=== PATIENT | male | born 2000 | race Two or more races ===

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

== ENCOUNTER 2019-03-22 18:28 | Emergency (ER) | payer BC ==
[2019-03-22 18:39] VITALS: BP 147/68
[2019-03-22] MEDS ORDERED: Albuterol/Ipratropium NEB.SOL* Albuterol 2.5 MG/Ipratropium 0.5 MG 3 ML INH ONE (18:58)
--- NOTE | 2019-03-22 18:58 | UC ---
Respiratory Complaint HPI - HPI Summary HPI Summary: sore throat nasal congestion and cough for a few days-no fever - History of Current Complaint Chief Complaint: UCRespiratory Stated Complaint: SORE THROAT, AND COUGH Time Seen by Provider: 03/22/19 18:34 Hx Obtained From: Patient Onset/Duration: Sudden Onset Timing: Constant Pain Intensity: 6 Pain Scale Used: 0-10 Numeric Character: Cough: Nonproductive Aggravating Factors: Nothing Alleviating Factors: Nothing Associated Signs And Symptoms: Positive: Nasal Congestion, Sinus Discomfort - Allergies/Home Medications Allergies/Adverse Reactions: Allergies Allergy/AdvReac Type Severity Reaction Status Date / Time No Known Allergies Allergy Verified 03/22/19 18:38 Home Medications: Home Medications Ibuprofen TAB* [Motrin TAB* 600 MG] 800 mg PO Q8H PRN 03/22/19 [History] PMH/Surg Hx/FS Hx/Imm Hx Previously Healthy: No Respiratory History: Asthma - mild intermittent - Surgical History Surgical History: None - Family History Known Family History: Positive: None, Non-Contributory - Social History Occupation: Student Lives: With Family Alcohol Use: Rare Substance Use Type: None Smoking Status (MU): Never Smoked Tobacco Have You Smoked in the Last Year: No - Immunization History Most Recent Influenza Vaccination: 2014 Review of Systems All Other Systems Reviewed And Are Negative: Yes Constitutional: Positive: Negative Skin: Positive: Negative Eyes: Positive: Negative ENT: Positive: Sore Throat, Nasal Discharge, Sinus Congestion Respiratory: Positive: Cough Cardiovascular: Positive: Negative Gastrointestinal: Positive: Negative Genitourinary: Positive: Negative Motor: Positive: Negative Neurovascular: Positive: Negative Musculoskeletal: Positive: Negative Neurological: Positive: Negative Psychological: Positive: Negative Is Patient Immunocompromised?: No Physical Exam Triage Information Reviewed: Yes Appearance: Well-Appearing, No Pain Distress, Well-Nourished Vital Signs: Initial Vital Signs Temp 99.0 F 03/22/19 18:33 Pulse 95 03/22/19 18:33 Resp 16 03/22/19 18:33 BP 147/68 03/22/19 18:33 Pulse Ox 95 03/22/19 18:33 Vital Signs Reviewed: Yes Eye Exam: Normal Eyes: Positive: Conjunctiva Clear ENT Exam: Normal ENT: Positive: Normal ENT inspection, Hearing grossly normal, Pharynx normal, Nasal congestion, Uvula midline. Negative: Trismus, Muffled voice, Hoarse voice , Dental tenderness, Sinus tenderness Dental Exam: Normal Neck exam: Normal Neck: Positive: Supple, Nontender, No Lymphadenopathy Respiratory Exam: Normal Respiratory: Positive: Chest non-tender, Lungs clear, Normal breath sounds, No respiratory distress, No accessory muscle use Cardiovascular Exam: Normal Cardiovascular: Positive: RRR, No Murmur, Pulses Normal, Brisk Capillary Refill Musculoskeletal Exam: Normal Musculoskeletal: Positive: Strength Intact, ROM Intact, No Edema Neurological Exam: Normal Neurological: Positive: Alert, Muscle Tone Normal Psychological Exam: Normal Skin Exam: Normal Re-Evaluation - Re-Evaluation First Eval Change: Improved - increased airmovement---sat 96% Respiratory Course/Dx - Course Course Of Treatment: albuterol/aerochamber claritin and nasal spray follow with pcp prn - Differential Dx/Diagnosis Provider Diagnosis: PND (post-nasal drip), Acute bronchospasm Discharge - Sign-Out/Discharge Documenting (check all that apply): Patient Departure All imaging exams completed and their final reports reviewed: No Studies - Discharge Plan Condition: Stable Disposition: HOME Prescriptions: Albuterol HFA INHALER* [Ventolin HFA Inhaler*] 2 puff INH Q6H PRN #1 mdi PRN Reason: chesttightness and cough Patient Education Materials: Bronchospasm (ED), Postnasal Drip (DC) Referrals: Candelario Kaur MD [Primary Care Provider] - If Needed - Billing Disposition and Condition Condition: STABLE Disposition: Home - Attestation Statements Provider Attestation: Per institutional requirements, I have reviewed the chart, however, I was not consulted specifically or made aware of this patient by the midlevel provider. I did not personally evaluate, interact with , or disposition this patient.
[2019-03-22] MEDS ORDERED: Albuterol HFA INHALER* 8 gm MDI INH ONE (19:21)
== END 2019-03-22 19:30 | disposition home or self-care (01) ==
LOC: UCEAST 18:28
DX: R09.82 Postnasal drip (principal); J98.01 Acute bronchospasm; J45.909 Unspecified asthma, uncomplicated
CPT/HCPCS: 87651; 99212; A9270-GY; G0463

== ENCOUNTER 2019-09-05 15:49 | Emergency (ER) | payer BC ==
--- OUTSIDE RECORDS SUMMARY | 2019-09-05 15:57 | XMS REPORT | Continuity of Care Document ---
:2000 External Reference #:[id number] Author Name Charis Hair NP (transmitted by agent of provider Candelario Kaur) Address [address] [place] [address] Care Team Providers Name Role Phone Candelario Kaur M.D. 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 Onset: Social History Type Date Description Comments Sex Unknown ETOH Use Occasionally consumes twice a month at alcohol parties, 5-6 beers Tobacco Use Start: Unknown Patient has never smoked Recreational Drug Use Sporadically uses twice a month Marijuana Tobacco Use Start: Unknown No Exposure To Secondhand Smoke Smoking Status Reviewed: 08/28/19 No Exposure To Secondhand Smoke Guns in Home No Allergies, Adverse Reactions, Alerts Description No Known Drug Allergies Medications Active Medications SIG Qnty Indications Ordering Provider Date Fluticasone 1 spray in each 9.900ml R09.81 Charis Hair, 08/28/2019 Propionate nostril twice PRODUCTION PACKAGER 50mcg/Act daily Suspension Qvar Redihaler 1 puffs twice a 10.600gm Candelario Kaur, 12/03/2017 day M.D. 80mcg/Act Aerosol Proair HFA 2 puff every 4 8.500gm Candelario Kaur, 11/27/2017 hours as needed M.D. 108(90Base) mcg/Act Aerosol Optichamber Jackie for use with 1units Candelario Kaur, 11/27/2017 metered dose M.D. Misc inhaler Medications Administered in Office Medication SIG Qnty Indications Ordering Provider Date Immunization Administration Nursing 04/23/2018 Single Or Combination Injection Immunization Adminstration 2+ Candelario Kaur M.D. 01/01/2017 Single Or Combination Injection Immunization Administration Candelario Kaur M.D. 01/01/2017 Single Or Combination Injection Immunization Administration Nursing 07/05/2016 Single Or Combination Injection Immunization Adminstration 2+ Candelario Kaur M.D. 12/28/2015 Single Or Combination Injection Immunization Administration Candelario Kaur M.D. 12/28/2015 Single Or Combination Injection Immunization Administration Nursing 07/05/2015 Single Or Combination Injection Immunization Adminstration 2+ Candelario Kaur M.D. 10/19/2014 Single Or Combination Injection Immunization Administration Candelario Kaur M.D. 10/19/2014 Single Or Combination Injection Immunization Administration Nursing 07/24/2014 Single Or Combination Injection Immunizations CPT Code Status Date Vaccine Lot # [id number] Given 04/23/2018 Meningococcal B Vaccine [id number] 84920 Given 01/01/2017 Gardasil 9 Valent [id number] 75349 Given 01/01/2017 Meningococcal B Vaccine [id number] 62143 Given 07/05/2016 Flu Quadrivalent [id number] 24757 Given 12/28/2015 Meningococcal Conjugate Vaccine (Menveo) [id number] 55254 Given 12/28/2015 Gardasil 9 Valent [id number] 46895 Given 07/05/2015 Flu Quadrivalent [id number] 96402 Given 10/19/2014 Gardasil [id number] 62986 Given 10/19/2014 Hepatitis A Pediatric [id number] 70219 Given 07/24/2014 Flu Quadrivalent [id number] 07713 Given 06/17/2013 Influenza Virus Vaccine, Split Virus, 6-35 Months Age Intramuscul 99809 Given 06/11/2012 Influenza Virus Vaccine, Split Virus, 6-35 Months Age Intramuscul 17222 Given 05/29/2011 Influenza Virus Vaccine, Split Virus, 6-35 Months Age Intramuscul 60370 Given 05/17/2010 Tdap 13110 Given 05/17/2010 Influenza Virus Vaccine, Split Virus, 6-35 Months Age Intramuscul 09819 Given 05/26/2009 Influenza Virus Vaccine, Split Virus, 6-35 Months Age Intramuscul 39590 Given 02/07/2009 Varicella (Chicken Pox) Vaccine 23511 Given 07/01/2008 Influenza Virus Vaccine, Split Virus, 6-35 Months Age Intramuscul 35019 Given 06/14/2008 Hepatitis A Pediatric 51537 Given 01/23/2008 Menactra 42667 Given 07/22/2007 Influenza Virus Vaccine, Split Virus, 6-35 Months Age Intramuscul 51814 Given 07/02/2006 Influenza Virus Vaccine, Split Virus, 6-35 Months Age Intramuscul 53068 Given 07/13/2004 Influenza Virus Vaccine Intranasal 30855 Given 12/21/2003 DTaP Vaccine Younger Than 7 89523 Given 12/21/2003 MMR Vaccine, Live, For Subcutaneous Use 66647 Given 12/21/2003 Polio Injectable 84263 Given 09/09/2003 Influenza Virus Vaccine, Split Virus, 6-35 Months Age Intramuscul 08882 Given 09/09/2003 Influenza Virus Vaccine, Split Virus, 6-35 Months Age Intramuscul 70457 Given 08/06/2003 Influenza Virus Vaccine, Split Virus, 6-35 Months Age Intramuscul 70269 Given 08/06/2003 Influenza Virus Vaccine, Split Virus, 6-35 Months Age Intramuscul 22745 Given 10/24/2000 Hepatitis B Vaccine Pediatric/Adolescent 86129 Given 10/18/2000 Polio Injectable 82392 Given 10/18/2000 DTaP Vaccine Younger Than 7 36287 Given 10/18/2000 Prevnar 13 36166 Given 10/18/2000 Hib Vaccine 99719 Given 07/08/2000 Prevnar 13 36699 Given 07/08/2000 MMR Vaccine, Live, For Subcutaneous Use 41430 Given 07/08/2000 Varicella (Chicken Pox) Vaccine 93096 Given 07/08/2000 Hepatitis B Vaccine Pediatric/Adolescent 01101 Given 01/17/2000 Hepatitis B Vaccine Pediatric/Adolescent 08380 Given 01/17/2000 DTaP Vaccine Younger Than 7 83850 Given 01/17/2000 Hib Vaccine 05561 Given 1999 Polio Injectable 52149 Given 1999 DTaP Vaccine Younger Than 7 21936 Given 1999 Hib Vaccine 92598 Given 1999 Polio Injectable 21306 Given 1999 DTaP Vaccine Younger Than 7 97753 Given 1999 Hib Vaccine Vital Signs Date Vital Result Comment 08/28/2019 11:39am Body Temperature 98.0 F Heart Rate 92 /min Respiratory Rate 16 /min BP Systolic 146 mmHg BP Diastolic 80 mmHg Weight 209.00 lb Weight 94.802 kg 04/21/2018 3:15pm Body Temperature 97.2 F Heart Rate 72 /min Respiratory Rate 16 /min BP Systolic 124 mmHg BP Diastolic 58 mmHg Blood Pressure Percentile 53 % Weight 187.12 lb Weight 84.880 kg Height 71 inches 5'11" BMI (Body Mass Index) 26.1 kg/m2 Body Mass Index Percentile 85 % Height Percentile 70 % Weight Percentile 88th Results Test Acquired Date Facility Test Result H/L Range Note Order 08/28/2019 [facility] Oximetry - 98% Pulse or Ear Laboratory test 03/22/2019 [facility] Rapid Strep Negative Negative [address] [place] [address] 1 Transplant Worker: [id number] Procedures Date Code Description Status 08/28/2019 75296 Pulse Oximetry Completed Medical Devices Description No Information Available Encounters Type Date Location Provider Dx Diagnosis Office Visit 08/28/2019 [facility] Charis Hair NP R09.81 Nasal congestion 11:30a R05 Cough F12.10 Cannabis abuse, uncomplicated Assessments Date Code Description Provider 08/28/2019 R09.81 Nasal congestion Charis Hair NP 08/28/2019 R05 Cough Charis Hair NP 08/28/2019 F12.10 Cannabis abuse, uncomplicated Charis Hair NP Plan of Treatment Future Appointment(s):03/09/2020 2:15 pm - Candelario Kaur M.D. at [facility]08/28/2019 - Charis Hair, NPR09.81 Nasal congestionNew Medication: Fluticasone Propionate 50 mcg/Act - 1 spray in each nostril twice [id number] Cannabis abuse, uncomplicated Functional Status Description No Information Available Mental Status Description No Information Available Referrals Description No Information Available
[2019-09-05 15:59] VITALS: BP 118/56
--- NOTE | 2019-09-05 16:06 | UC ---
Skin Complaint HPI - HPI Summary HPI Summary: dry red circular rash behind left ear for one month has been treating with "eczema cream" - History of Current Complaint Chief Complaint: UCSkin Time Seen by Provider: 09/05/19 16:01 Stated Complaint: SKIN ISSUE BEHIND EAR Hx Obtained From: Patient Onset/Duration: Sudden Onset, Lasting Weeks - 4, Still Present Timing: Constant Pain Intensity: 0 Pain Scale Used: 0-10 Numeric Location: Discrete Character: Redness Aggravating Factor(s): Nothing Alleviating Factor(s): Nothing Associated Signs & Symptoms: Positive: Negative - Allergy/Home Medications Allergies/Adverse Reactions: Allergies Allergy/AdvReac Type Severity Reaction Status Date / Time No Known Allergies Allergy Verified 09/05/19 15:59 PMH/Surg Hx/FS Hx/Imm Hx Previously Healthy: Yes - Surgical History Surgical History: None - Family History Known Family History: Positive: None, Non-Contributory - Social History Occupation: Student Lives: With Family Alcohol Use: Rare Substance Use Type: None Smoking Status (MU): Never Smoked Tobacco Have You Smoked in the Last Year: No - Immunization History Most Recent Influenza Vaccination: 2014 Review of Systems All Other Systems Reviewed And Are Negative: Yes Constitutional: Positive: Negative Skin: Positive: Rash Eyes: Positive: Negative ENT: Positive: Negative Respiratory: Positive: Negative Cardiovascular: Positive: Negative Gastrointestinal: Positive: Negative Genitourinary: Positive: Negative Motor: Positive: Negative Neurovascular: Positive: Negative Musculoskeletal: Positive: Negative Neurological: Positive: Negative Psychological: Positive: Negative Is Patient Immunocompromised?: No Physical Exam Triage Information Reviewed: Yes Appearance: Well-Appearing, No Pain Distress, Well-Nourished Vital Signs: Initial Vital Signs Temp 96.9 F 09/05/19 15:56 Pulse 103 09/05/19 15:56 Resp 12 09/05/19 15:56 BP 118/56 09/05/19 15:56 Pulse Ox 99 09/05/19 15:56 Vital Signs Reviewed: Yes Eye Exam: Normal Eyes: Positive: Conjunctiva Clear ENT Exam: Normal ENT: Positive: Normal ENT inspection, Hearing grossly normal. Negative: Trismus , Muffled voice, Hoarse voice Dental Exam: Normal Neck exam: Normal Neck: Positive: Supple, Nontender, No Lymphadenopathy Respiratory Exam: Normal Respiratory: Positive: Chest non-tender, No respiratory distress, No accessory muscle use Cardiovascular Exam: Normal Cardiovascular: Positive: RRR, Pulses Normal, Brisk Capillary Refill Musculoskeletal Exam: Normal Musculoskeletal: Positive: Strength Intact, ROM Intact, No Edema Neurological Exam: Normal Neurological: Positive: Alert, Muscle Tone Normal Psychological Exam: Normal Skin: Positive: Other - 2x1 cm oval dry rash with discreted raised border behing left ear Course/Dx - Course Course Of Treatment: lotrisone cream bid and follow with pcp prn - Diagnoses Provider Diagnosis: Scalp ringworm Discharge ED - Sign-Out/Discharge Documenting (check all that apply): Patient Departure All imaging exams completed and their final reports reviewed: No Studies - Discharge Plan Condition: Stable Disposition: HOME Prescriptions: Clotrimazole/Betamethasone* [Lotrisone Cream*] 1 applic TOPICAL BID #1 tube Patient Education Materials: Skin Yeast Infection (ED) Referrals: Candelario Kaur MD [Primary Care Provider] - If Needed - Billing Disposition and Condition Condition: STABLE Disposition: Home
== END 2019-09-05 16:15 | disposition home or self-care (01) ==
LOC: UCEAST 15:49
DX: B35.0 Tinea barbae and tinea capitis (principal)
CPT/HCPCS: 99212; G0463